=== PATIENT | female | born 1940 | race Caucasian/White ===

== ENCOUNTER 2019-08-06 14:20 | Emergency (ER) | payer OTHER ==
[~2019-08-06] VITALS: Ht 157.5 cm; Wt 86.2 kg
[2019-08-06] MEDS ORDERED: CEPH500 PO (16:47)
[2019-08-06] MEDS ORDERED: HYDR1TAB94 PO (16:47)
== END 2019-08-06 17:15 | disposition home or self-care (01) ==
LOC: ER 14:20
DX: S61.216A Laceration without foreign body of right little finger without damage to nail, initial encounter (principal); S00.83XA Contusion of other part of head, initial encounter; S80.01XA Contusion of right knee, initial encounter; Z23 Encounter for immunization; W01.0XXA Fall on same level from slipping, tripping and stumbling without subsequent striking against object, initial encounter
CPT/HCPCS: 12002; 70450; 73130; 90471; 90714; 99284-25; A9270-GY

== ENCOUNTER → 2019-08-27 | Outpatient (CLI) | payer OTHER ==
[~2019-08-27] MED LIST: CEPH500 PO; HYDR1TAB94 PO
[2019-08-27 16:01] LABS: Source, Urine Clean Catch
[2019-08-27 16:13] LABS: Appearance, Urine Hazy (Clear); Color, Urine Yellow (P-Yellow); Leukocyte Esterase, Urine 1+ (Neg); Nitrite, Urine Neg (Neg); Protein, Urine Trace (Neg)
[2019-08-27 16:14] LABS: Bacteria Few /hpf; Bilirubin, Urine Neg (Neg); Blood, Urine 2+ (Neg); Glucose Qualitative, Urine Neg (Normal); Ketones, Urine Neg (Neg); Red Blood Cells, Urine 25-50 /hpf (0-2); Squamous Epithelial Cells Few /hpf (Few); Urobilinogen, Urine NORM (Normal); WBC Cast Rare /lpf (0)
== END ==
LOC: LAB SHORT 15:35 → LAB EV 15:35
PROVIDERS: Physician Assistant Surgical
DX: N94.89 Other specified conditions associated with female genital organs and menstrual cycle (principal)
CPT/HCPCS: 81001